=== PATIENT | male | born 1970 | race Hispanic/Latino ===

== ENCOUNTER 2020-01-19 20:40 | Emergency (ER) | payer BC ==
[~2020-01-19] VITALS: Ht 165.1 cm; Wt 79.4 kg
[2020-01-19] MEDS ORDERED: KETOROLAC TROMETHAMINE 30 MG/ML VIAL IV STA (22:32)
--- NOTE | 2020-01-19 22:34 | Diagnostic Imaging Report ---
EXAMINATION: CXR 2 VIEW - HOPD INDICATION: Chest pain COMPARISON: None FINDINGS: TUBES and LINES: None. LUNGS: Normal lung volumes. Subtle bibasilar scarring/atelectasis otherwise Lungs are clear. No consolidations. PLEURA: No pleural effusion or pneumothorax. HEART AND MEDIASTINUM: The cardiomediastinal silhouette is unremarkable. BONES AND SOFT TISSUES: No acute osseous lesion. Soft tissues are unremarkable. Suspect lower cervical an thoracic vertebral anomalies. Scoliosis. UPPER ABDOMEN: No free air under the diaphragm. IMPRESSION: No acute thoracic radiographic abnormality. Signed by: Leopoldo Nixon DO on 01/19/2020 10:31 PM
[2020-01-19] MEDS ORDERED: PREDNISONE 20 MG TAB ONE (23:30)
[2020-01-19] MEDS ORDERED: KETOROLAC TROMETHAMINE 60 MG/2 ML VIAL ONE (23:30)
[2020-01-20] MEDS ORDERED: IOPAMIDOL 370 MG/ML 200 ML INFUS..BTL INJ ONE
[2020-01-20] MEDS ORDERED: SODIUM CHLORIDE 0.9% 50ML 50 ML ONE
--- NOTE | 2020-01-20 01:32 | Diagnostic Imaging Report ---
EXAM: CT Chest WITH contrast (PE Protocol) INDICATION: Left-sided pleuritic chest pain COMPARISON: Day day prior chest x-ray TECHNIQUE: Chest was scanned utilizing a multidetector helical scanner from the lung apex through the level of the diaphragm after administration of IV contrast. Thin section reconstructions were obtained with special concentration on the pulmonary arteries. Coronal and sagittal reformations were obtained. Pulmonary embolism protocol was performed. IV CONTRAST: 100 mL of Isovue 370 COMPLICATIONS: None RADIATION DOSE: Total DLP: 351 mGy*cm Estimated effective dose: (DLP x 0.014 x size factor) mSv CTDIvol has been reviewed. It is below the limits set by the Radiation Protocol Committee (RPC). Dose modulation, iterative reconstruction, and/or weight based adjustment of the mA/kV was utilized to reduce the radiation dose to as low as reasonably achievable. FINDINGS: LINES/ TUBES: None. LUNGS AND AIRWAYS: No filling defect is identified within the pulmonary arteries to the segmental level. The lungs are unremarkable. Airways are normal. A 4 mm subpleural nodule in the right midlung, no follow-up required. A 4 mm pleural nodule in the left lower lung, no follow-up required. PLEURA: The pleural spaces are clear. HEART AND MEDIASTINUM: The thyroid gland is normal. No mediastinal, hilar or axillary lymphadenopathy. The heart is normal in size. There is no pericardial effusion. . Main pulmonary artery within normal limits. UPPER ABDOMEN: Unremarkable BONES: Multilevel cervicothoracic vertebral anomalies. Cervicothoracic scoliosis. SOFT TISSUES: Unremarkable. IMPRESSION: No pulmonary emboli. No acute CT thoracic abnormality. Signed by: Leopoldo Nixon DO on 01/20/2020 1:28 AM
--- OUTSIDE RECORDS SUMMARY | 2020-01-20 01:36 | XMS REPORT | Continuity of Care Document ---
Author Author [facility] Organization [facility] Address [address] [place] [phone] Phone Unavailable Care Team Providers Care Principal Hardware Architect Name Role Phone Yeimi SALCIDO Unavailable Problems This patient has no known problems. Allergies, Adverse Reactions, Alerts This patient has no known allergies or adverse reactions. Medications This patient has no known medications. Procedures This patient has no known procedures. Results Test Description Test Time Test Comments Results Result Comments Source CT CHEST WITH CONTRAST-HOPD 2020-01-20 01:23:00 [place] [address] Patient Name: GABRIEL COOK MR #: [id number] : 1970 Age/Sex: 49/M Req #: [id number] Adm Physician: Ordered by: BARBIE SALCIDO MD Report #: [id number] Location: [facility] Room/Bed: Procedure: HOPD/CT CHEST WITH CONTRAST-HOPD Exam Date: 01/20/20 Exam Time: 15 REPORT STATUS: Signed EXAM: CT Chest WITH contrast (PE Protocol) INDICATION: Left-sided pleuritic chest pain COMPARISON: Day day prior chest x-ray TECHNIQUE: Chest was scanned utilizing a multidetector helical scanner from the lung apex through the level of the diaphragm after administration of IV contrast. Thin section reconstructions were obtained with special concentration on the pulmonary arteries. Coronal and sagittal reformations were obtained. Pulmonary embolism protocol was performed. IV CONTRAST: 100 mL of Isovue 370 COMPLICATIONS: None RADIATION DOSE: Total DLP: 351 mGy*cm Estimated effective dose: (DLP x 0.014 x size factor) mSv CTDIvol has been reviewed. It is below the limits set by the Radiation Protocol Committee (RPC). Dose modulation, iterative reconstruction, and/or weight based adjustment of the mA/kV was utilized to reduce the radiation dose to as low as reasonably achievable. FINDINGS: LINES/ TUBES: None. LUNGS AND AIRWAYS: No filling defect is identified within the pulmonary arteries to the segmental level. The lungs are unremarkable. Airways are normal. A 4 mm subpleural nodule in the right midlung, no follow-up required. A 4 mm pleural nodule in the left lower lung, no follow-up required. PLEURA: The pleural spaces are clear. HEART AND MEDIASTINUM: The thyroid gland is normal. No mediastinal, hilar or axillary lymphadenopathy. The heart is normal in size. There is no pericardial effusion. . Main pulmonary artery within normal limits. UPPER ABDOMEN: Unremarkable BONES: Multilevel cervicothoracic vertebral anomalies. Cervicothoracic scoliosis. SOFT TISSUES: Unremarkable. IMPRESSION: No pulmonary emboli. No acute CT thoracic abnormality. Signed by: Leopoldo Nixon DO on 01/20/2020 1:28 AM Dictated By: LEOPOLDO NIXON DO 7 Transcribed By: BABATUNDE on 01/20/20127 COPY TO: BARBIE SALCIDO MD CXR 2 VIEW - HOPD 2020-01-19 22:29:00 [place] [address] Patient Name: GABRIEL COOK MR #: [id number] : 1970 Age/Sex: 49/M Req #: [id number] Adm Physician: Ordered by: BARBIE SALCIDO MD Report #: [id number] Location: [facility] Room/Bed: Procedure: [id number] HOPD/CXR 2 VIEW - HOPD Exam Date: 01/19/20 Exam Time: 2134 REPORT STATUS: Signed EXAMINATION: CXR 2 VIEW - HOPD INDICATION: Chest pain COMPARISON: None FINDINGS: TUBES and LINES: None. LUNGS: Normal lung volumes. Subtle bibasilar scarring/atelectasis otherwise Lungs are clear. No consolidations. PLEURA: No pleural effusion or pneumothorax. HEART AND MEDIASTINUM: The cardiomediastinal silhouette is unremarkable. BONES AND SOFT TISSUES: No acute osseous lesion. Soft tissues are unremarkable. Suspect lower cervical an thoracic vertebral anomalies. Scoliosis. UPPER ABDOMEN: No free air under the diaphragm. IMPRESSION: No acute thoracic radiographic abnormality. Signed by: Leopoldo Nixon DO on 01/19/2020 10:31 PM Dictated By: LEOPOLDO NIXON DO 30 Transcribed By: BABATUNDE on 01/19/202230 COPY TO: BARBIE SALCIDO MD
[2020-01-20] MEDS ORDERED: NAPROXEN250 MG PO (02:08)
--- NOTE | 2020-01-20 02:50 | Emergency Department Note ---
History of Present Illnes History of Present Illness Chief Complaint: Chest Pain History of Present Illness This is a 49 year old male, with a history of hypertension, scoliosis, and a "mild NV" in 2010, who presents for evaluation of an approximately 30 hour history of intermittent left-sided chest pain, that occurs on deep breathing. Patient describes the pain as a "solid, dull pain," that occurs when he takes a deep breath. He denies any chest tightness, heaviness, nausea, vomiting, diaphoresis, palpitations, dizziness, or lightheadedness. He also denies any cough, upper respiratory symptoms, fever, or shortness of breath, until he takes a deep breath. Patient has not taken anything for the pain. Historian: Patient Arrival Mode: Car Lead Engineer Required: No Onset (how long ago): hour(s) (30) Location: left Quality: "solid, dull" pain Radiation: Reports non-radiation Severity: moderate Onset quality: sudden Duration (how long): hour(s) (30) Timing of current episode: intermittent Progression: waxing and waning Chronicity: new Context: Denies recent illness, Denies trauma/injury, Denies hx of DVT/PE Relieving factors: none Exacerbating factors: other (pain is worse with deep breathing) Associated symptoms: Denies cough, Denies diaphoresis, Denies fever/chills, Denies headaches, Denies malaise, Denies nausea/vomiting, Denies shortness of breath, Denies syncope Treatments prior to arrival: none Risk factors: HTN, previous NV, former smoker Past Medical/Family History Physician Review I have reviewed the patient's past medical and family history. Any updates have been documented here. Past Medical History Recent Fever: No Clinical Suspicion of Infectio: No New/Unexplained Change in Ment: No Past Medical History: Hypertension, NV Other Medical History: Scoliosis Other Surgery: Right hand Social History Smoking Cessation: Former smoker (quit 2 months ago) Alcohol Use: Occasional Any Illegal Drug Use: No TB Exposure/Symptoms: No Physically hurt or threatened: No Family History Family history of heart diseas: Yes (Mom, dx in her70's; ) Other Last Tetanus: unknown Any Pre-Existing Lines (PICC,: No Is patient up to date on immun: No Review of Systems Review of Systems Constitutional: Denies chills, Denies fever, Denies malaise EENTM: Reports no symptoms Cardiovascular: Reports chest pain; Denies edema, Denies palpitations Respiratory: Reports no symptoms; Denies cough, Denies dyspnea, Denies dyspnea on exertion Gastrointestinal: Denies abdominal pain, Denies nausea, Denies vomiting Musculoskeletal: Denies back pain, Denies muscle pain, Denies neck pain Integumentary: Denies change in color, Denies rash Neurological: Denies numbness, Denies tingling, Denies weakness Psychological: Reports anxiety (anxious about symptoms) Endocrine: Reports no symptoms Review of other systems: All other systems negative Physical Exam Related Data Allergies: Coded Allergies: No Known Allergies (Unverified , 01/19/20) Triage Vital Signs Vital Signs Date Time Temp Pulse Resp B/P (MAP) Pulse Ox O2 Delivery O2 Flow Rate FiO2 01/19/20 20:55 98.0 86 18 176/103 97 Room Air Vital signs reviewed: Yes Physical Exam CONSTITUTIONAL Constitutional: Present well-developed, Present well-nourished; Absent distressed, Absent ill appearing HENT HENT: Present normocephalic, Present atraumatic, Present oropharynx cl ear/moist, Present nose normal HENT L/R: Present left ext ear normal, Present right ext ear normal EYES Eyes: Reports PERRL, Reports conjunctivae normal NECK Neck: Present ROM normal PULMONARY Pulmonary: Present effort normal, Present breath sounds normal CARDIOVASCULAR Cardiovascular: Present regular rhythm, Present heart sounds normal, Present capillary refill normal, Present normal rate; Absent murmur GASTROINTESTINAL Abdominal: Present soft, Present nontender, Present bowel sounds normal GENITOURINARY Genitourinary: Present exam deferred SKIN Skin: Present warm, Present dry; Absent rash MUSCULOSKELETAL Musculoskeletal: Present ROM normal NEUROLOGICAL Neurological: Present alert, Present oriented x 3, Present no gross motor or sensory deficits PSYCHOLOGICAL Psychological: Present mood/affect normal, Present judgement normal Results Laboratory Laboratory Laboratory Tests Test 01/19/20 22:40 D-Dimer Quantitative (PE/DVT) 0.47 ug/mLFEU (0.00-0.45) Lab results reviewed: Yes Laboratory comments CBC - nl; CMP - nl except for glu - 122 mg/dl; Cardiacs - negative; UA - negative, except for Gluc = 100 mg/dl; Imaging Imaging results reviewed: Yes Imaging Comments [facility] [place] [address] Patient Name: GABRIEL COOK MR #: [id number] : 1970 Age/Sex: 49/M Req #: [id number] Adm Physician: Ordered by: BARBIE SALCIDO MD Report #: [id number] Location: [facility] Room/Bed: Procedure: [id number] HOPD/CXR 2 VIEW - HOPD Exam Date: 01/19/20 Exam Time: 2134 REPORT STATUS: Signed EXAMINATION: CXR 2 VIEW - HOPD INDICATION: Chest pain COMPARISON: None FINDINGS: TUBES and LINES: None. LUNGS: Normal lung volumes. Subtle bibasilar scarring/atelectasis otherwise Lungs are clear. No consolidations. PLEURA: No pleural effusion or pneumothorax. HEART AND MEDIASTINUM: The cardiomediastinal silhouette is unremarkable. BONES AND SOFT TISSUES: No acute osseous lesion. Soft tissues are unremarkable. Suspect lower cervical an thoracic vertebral anomalies. Scoliosis. UPPER ABDOMEN: No free air under the diaphragm. IMPRESSION: No acute thoracic radiographic abnormality. Signed by: Leopoldo Nixon DO on 01/19/2020 10:31 PM Dictated By: LEOPOLDO NIXON DO 30 Transcribed By: BABATUNDE on 01/19/202230 COPY TO: BARBIE SALCIDO MD~ REPORT STATUS: Signed EXAM: CT Chest WITH contrast (PE Protocol) INDICATION: Left-sided pleuritic chest pain COMPARISON: Day day prior chest x-ray TECHNIQUE: Chest was scanned utilizing a multidetector helical scanner from the lung apex through the level of the diaphragm after administration of IV contrast. Thin section reconstructions were obtained with special concentration on the pulmonary arteries. Coronal and sagittal reformations were obtained. Pulmonary embolism protocol was performed. IV CONTRAST: 100 mL of Isovue 370 COMPLICATIONS: None RADIATION DOSE: Total DLP: 351 mGy*cm Estimated effective dose: (DLP x 0.014 x size factor) mSv CTDIvol has been reviewed. It is below the limits set by the Radiation Protocol Committee (RPC). Dose modulation, iterative reconstruction, and/or weight based adjustment of the mA/kV was utilized to reduce the radiation dose to as low as reasonably achievable. FINDINGS: LINES/ TUBES: None. LUNGS AND AIRWAYS: No filling defect is identified within the pulmonary arteries to the segmental level. The lungs are unremarkable. Airways are normal. A 4 mm subpleural nodule in the right midlung, no follow-up required. A 4 mm pleural nodule in the left lower lung, no follow-up required. PLEURA: The pleural spaces are clear. HEART AND MEDIASTINUM: The thyroid gland is normal. No mediastinal, hilar or axillary lymphadenopathy. The heart is normal in size. There is no pericardial effusion. . Main pulmonary artery within normal limits. UPPER ABDOMEN: Unremarkable BONES: Multilevel cervicothoracic vertebral anomalies. Cervicothoracic scoliosis. SOFT TISSUES: Unremarkable. IMPRESSION: No pulmonary emboli. No acute CT thoracic abnormality. Signed by: Leopoldo Nixon DO on 01/20/2020 1:28 AM Dictated By: LEOPOLDO NIXON DO 7 Transcribed By: BABATUNDE on 01/20/20127 COPY TO: BARBIE SALCIDO MD~ Procedures 12 Lead ECG Interpretation ECG Interpretation : ECG: ECG 1 Lead Engineer: Interpreted by ED physician Date: Jan 19, 2020 Time: 21:05 Prior ECG tracings: not available for review Rhythm: sinus tachycardia Rate: normal BPM: 106 QRS axis: right Conduction: incomplete RBBB ST segments normal: Yes T waves normal: Yes Q waves: III, aVF Clinical Impression: abnormal ECG Assessment & Plan Medical Decision Making MDM - Reviewed results of diagnostic evaluation with the patient and , including normal chest x-ray, normal blood work other than a slightly elevated blood sugar of 122, which was a nonfasting sample, normal cardiac's slightly elevated d-dimer 0.47. He does have some abnormal findings on his EKG including an incomplete right bundle branch block and possible old inferior infarct, with no acute changes. - Patient had resolution of his chest pain with a dose of Toradol. Patient also had a normal troponin with chest pain intermittently for the past 30 hours. Discussed with patient and , that he does have risk factors for heart disease, including his uncontrolled blood pressure, remote history of an NV, and a former smoker. It is concerning that he has not had cardiology follow-up is NV in 2010. Offered admission to the hospital, for observation further evaluation of his symptoms. Patient would prefer outpatient evaluation. Explained to patient that we could contact one of the local cottonseed meat presser for patient to follow-up with in the next 24-48 hours, in the office. Dr. Zimmerman's AUTOMATIC PRINT DEVELOPER, Haim Meyer, was contacted by ER nurse Rocky Elizabeth, with patient's information, for follow-up in the next 24 - 48 hours. Patient was provided with copies of all diagnostics, to take with him to this appointment. The patient and , were pleased with the plan - Patient's blood pressure was elevated upon arrival, and was improved, but still elevated at the time of discharge. Patient was asymptomatic, and the blood pressure reading was not treated. He takes metoprolol 50 mg daily for his blood pressure. - Follow-up with Cardiology today, with one of the Drs. Zimmerman, at [phone], for an appointment to follow-up on this ER visit, regarding chest pain, abnormal EKG and elevated blood pressure. - Continue your current medications, including Baby Aspirin 81 mg daily. - Return to the ER, if your symptoms worsen. Assessment & Plan Final Impression: (1) Pleuritic chest pain (2) Uncontrolled hypertension (3) Scoliosis Depart Disposition: HOME, SELF-CARE Last Vital Signs Date Time Temp Pulse Resp B/P (MAP) Pulse Ox O2 Delivery O2 Flow Rate FiO2 01/19/20 20:55 98.0 86 18 176/103 97 Room Air Home Meds Active Scripts Naproxen (NAPROXEN) 250 Mg Tablet, 500 MG PO BID for pain and inflammation, #30 TAB 0 Refills Prov:BARBIE SALCIDO MD 01/20/20 Medications in the ED Ketorolac Tromethamine 30 mg ONCE STAT IV ; Start 01/19/20 at 22:32; Stop 01/19/20 at 22:54; Status DC Prednisone 40 mg STK-MED ONCE .ROUTE ; Start 01/19/20 at 23:30; Stop 01/19/20 at 23:23; Status DC Ketorolac Tromethamine 60 mg STK-MED ONCE .ROUTE ; Start 01/19/20 at 23:30; Stop 01/19/20 at 23:24; Status DC Sodium Chloride 50 ml @ ud STK-MED ONCE .ROUTE ; Start 01/20/20 at 00:00; Stop 01/19/20 at 23:54; Status DC Iopamidol 74,000 mg STK-MED ONCE INJ ; Start 01/20/20 at 00:00; Stop 01/19/20 at 23:54; Status DC BARBIE SALCIDO MD Jan 20, 2020 02:50
== END 2020-01-20 02:18 | disposition home or self-care (01) ==
LOC: FSED 21:20
DX: R07.81 Pleurodynia (principal); I10 Essential (primary) hypertension; M41.9 Scoliosis, unspecified; R94.31 Abnormal electrocardiogram [ECG] [EKG]; I25.2 Old myocardial infarction
CPT/HCPCS: 36415; 71046; 71260; 80053; 82553; 84484; 85025; 85379; 93005; 99284; J1885 ×2; J7512; Q9967